=== PATIENT | female | born 1995 | race Caucasian/White ===

== ENCOUNTER 2023-11-14 01:26 | Emergency (ER) | payer MEDICAID ==
[~2023-11-14] VITALS: Ht 160 cm; Wt 48.0 kg
[2023-11-14 01:39] VITALS: BP 131/68; PULSE 119; RESP 16; TEMP 98.5; O2SAT 100
== END 2023-11-14 11:06 | disposition left against medical advice (07) ==
LOC: ER 01:38
DX: R00.2 Palpitations (principal); Z53.21 Procedure and treatment not carried out due to patient leaving prior to being seen by health care provider
CPT/HCPCS: 71045; 93005; 99281

== ENCOUNTER 2024-11-12 23:43 | Emergency (ER) | payer SELFPAY ==
[~2024-11-12] VITALS: Ht 167.6 cm; Wt 52.0 kg
[2024-11-12 23:49] VITALS: O2SAT 100
[2024-11-12 23:51] VITALS: BP 120/80; PULSE 94; RESP 16; TEMP 36.6; O2SAT 99
[2024-11-13 01:48] LABS: CHLORIDE 98 mEq/L (98-107); POTASSIUM 3.8 mEq/L (3.5-5.1); SODIUM 139 mEq/L (136-145)
[2024-11-13 01:49] LABS: CALCIUM 10.5 mg/dL (8.7-10.4); CARBON DIOXIDE 32 mEq/L (21-32)
[2024-11-13 01:54] LABS: CREATININE 0.6 mg/dL (0.6-1.0); GLUCOSE 73 mg/dL (70-105); UREA NITROGEN BLOOD 13 mg/dL (9-23)
== END 2024-11-13 02:24 | disposition home or self-care (01) ==
LOC: ER 11-13 00:04
DX: R20.2 Paresthesia of skin (principal)
CPT/HCPCS: 36415; 71045; 80048; 93971; 99284